=== PATIENT | male | born 1950 | race Caucasian/White ===

== ENCOUNTER 2019-06-05 06:56 | Outpatient (CLI) | payer MEDICARE, OTHER | END 2019-06-05 23:59 | disposition home or self-care (01) | LOC: CVU 06:56 | PROVIDERS: ATTEND Internal Medicine Cardiovascular Disease | DX: I08.1 Rheumatic disorders of both mitral and tricuspid valves (principal); I83.893 Varicose veins of bilateral lower extremities with other complications; I10 Essential (primary) hypertension; I87.2 Venous insufficiency (chronic) (peripheral); I48.91 Unspecified atrial fibrillation; R60.0 Localized edema | CPT/HCPCS: 93306; 93970 ==